=== PATIENT | male | born 1965 | race Caucasian/White ===

== ENCOUNTER 2022-08-24 20:43 | Emergency (ER) | payer BC, SELFPAY ==
--- NOTE | ~2022-08-24 | CT_ITS ---
EXAMINATION: CT abdomen pelvis w con DATE: 08/25/2022 00:32 INDICATION: Painless hematuria. TECHNIQUE: Computed tomography (CT) of the abdomen and pelvis was performed with 100 mL Omnipaque 350 intravenous contrast. Automated exposure control and iterative reconstruction technique were employe d. The dose-length product was 1273.53 mGy-cm. COMPARISON: None. FINDINGS: The visualized portions of the lung bases demonstrate mild atelectasis. No pleural effusion . The heart size is normal. No pericardial effusion. There is a small sliding hiatal hernia. The live r, gallbladder, spleen, pancreas, and adrenal glands are normal. There is cortical thinning of the ki dneys. There are cysts in right kidney measuring up to 9 mm. There is a 2 mm stone in right kidney. T he prostate is mildly enlarged. There are bilateral inguinal hernias containing fat. Left common jerry c vein and left external iliac vein are small, likely chronic thrombosis. There are enlarged collater al veins in the anterior pelvis. There is an anastomosis in the sigmoid colon. There is diverticulosi s of the colon without evidence of diverticulitis. The appendix is not visualized. There are no dilat ed loops of bowel. There are umbilical and supraumbilical ventral hernias containing fat. There are b ridging endplate osteophytes at multiple levels in the spine, consistent with diffuse idiopathic skel etal hyperostosis (DISH). There is moderate lumbar spondylosis. IMPRESSION: 1. 2 mm nonobstructing right kidney stone. 2. Small sliding hiatal hernia. 3. Ventral hernias containing fat. Reviewed, dictated and finalized at location A. [employer]
[2022-08-24 20:50] VITALS: BP 157/92; PULSE 96; RESP 18; TEMP 36.6; O2SAT 100
[2022-08-24 22:07] LABS: Appearance Urine Clear (Clear); Bilirubin Urine Negative (Negative); Blood Urine 3+ (Negative); Color Urine Yellow (Yellow); Glucose Urine UA 3+ mg/dL (Negative); Ketones Urine Negative (Negative); Leukocyte Esterase Ur Negative LEU/UL (Negative); Nitrate Urine Negative (Negative); Protein Urine 2+ mg/dL (Negative); Specific Grav Ur 1.015 (1.001-1.035); Urobilinogen Urine 0.2 mg/dL (<2.0); pH Urine 5.5 (5.0-9.0)
[2022-08-24 22:12] LABS: Mucus Urine Rare /lpf; Squamous Epithelial Cell Urine Rare /hpf (Few); WBC Urine 0-3 /hpf
[2022-08-24 22:14] LABS: Add Urine Microscopic? YES
[2022-08-24 23:05] VITALS: BP 143/83; PULSE 80; TEMP 36.8; O2SAT 100
[2022-08-24] MEDS: SODIUM CHLORIDE 0.9% IV 1,000 ML 999 ML IV CONT (23:41)
[2022-08-24 23:56] LABS: Basophils Percent Auto 0.5 % (0.2-1.2); Eosinophils Percent Auto 0.7 % (0-4.4); Hematocrit 41.8 % (42.0-52.0); Hemoglobin 13.9 g/dL (14.0-18.0); Immature Granulocyte Absolute 0.03 K/mm3 (0.00-0.031); Immature Granulocyte Percent A 0.5 % (0-0.5); Lymphocytes Absolute Auto 1.24 K/mm3 (0.9-3.2); Lymphocytes Percent Auto 20.8 % (18.3-44.2); Mean Corpuscular HGB Conc 33.3 g/dl (32-36); Mean Corpuscular Hemoglobin 32.5 pg (26-34); Mean Corpuscular Volume 97.7 fl (80-100); Mean Platelet Volume 10.6 fl (7.4-10.4); Monocytes Absolute Auto 0.5 K/mm3 (0.1-0.6); Monocytes Percent Auto 8.2 % (2.6-8.5); Neutrophils Absolute Auto 4.1 K/mm3 (1.3-6.7); Neutrophils Percent Auto 69.3 % (45.5-73.1); Platelet Count Result 157 k/mm3 (150-375); Red Blood Count 4.28 M/mm3 (4.6-6.20); Red Cell Distribution Width 13.7 % (11.5-14.5)
[2022-08-25 00:07] LABS: Alanine Aminotransferase 25 U/L (6-50); Albumin Level 3.7 g/dL (3.5-5.1); Alkaline Phosphatase 90 U/L (38-126); Anion Gap 5 mmol/L (8-16); Aspartate Amino Transferase 26 U/L (17-59); Bilirubin,Total 0.4 mg/dL (0.2-1.3); Blood Urea Nitrogen 12 mg/dL (9-20); Calcium 8.4 mg/dL (8.4-10.2); Carbon Dioxide 27 mmol/L (22-30); Chloride 103 mmol/L (98-107); Estimated CRCL calculation 65 ml/min; Estimated Glomerular Filt Rate 57; Glucose 248 mg/dL (65-110); Potassium 3.8 mmol/L (3.4-5.0); Sodium 135 mmol/L (137-145)
--- NOTE | 2022-08-25 00:19 | ED.MALEGU ---
HPI - Male Genitourinary General Chief complaint: Urogenital-Male Stated complaint: peeing blood Time Seen by Provider: 08/24/22 23:23 History of Present Illness HPI Narrative: 57-year-old male presents to the emergency room for evaluation of painless hematuria since yesterday. Patient denies history of cancer. Does endorse significant tobacco use. Patient denies any abdominal pain, flank pain or back pain. Denies nausea vomiting or diarrhea. Denies fevers. Denies unexplained weight loss. Denies any testicular pain. Related Data Home Medications Medication Instructions Recorded Confirmed atorvastatin 40 mg tablet mg 08/24/22 hydrochlorothiazide 25 mg tablet mg 08/24/22 losartan 100 mg tablet mg 08/24/22 metformin 500 mg tablet mg 08/24/22 Allergies Allergy/AdvReac Type Severity Reaction Status Date / Time No Known Allergies Allergy Verified 08/24/22 23:41 Review of Systems Review of Systems: CONSTITUTIONAL: Denies fever, chills, or sweats. EYES: Denies visual changes, redness, or discharge. ENT: Denies rhinorrhea, congestion, sore throat, or otalgia. CARDIOVASCULAR: Denies chest pain, palpitations, or edema. RESPIRATORY: Denies cough or dyspnea. GASTROINTESTINAL: Denies abdominal pain, nausea, vomiting, or diarrhea. GENITOURINARY: Denies dysuria or hematuria. SKIN: Denies rash or itching. MUSCULOSKELETAL: Denies back pain, joint pain, or myalgia. NEUROLOGIC: Denies headache, numbness, dizziness, or weakness. PSYCHIATRIC: Denies anxiety or depression. Exam Narrative: GENERAL: Well-appearing, well-nourished, no physical limitations, and in no acute distress. HEAD: Normocephalic, atraumatic. EYES: Conjunctivae normal, PERRLA and EOMI. CHEST: Clear to auscultation. No respiratory distress. No wheezes rales or rhonchi. N HEART: Regular rate and rhythm. No murmur heard. Normal peripheral pulses. ABDOMEN: Soft, nontender, nondistended, normal active bowel sounds. BACK: No CVA tenderness EXTREMITIES: Normal range of motion. No edema. No clubbing or cyanosis SKIN: Warm, dry, no rash. No noted wounds NEURO: No focal deficits. Alert and oriented x3. MAEW. CN's II-XI intact bilaterally, normal gait PSYCH: Cooperative. Normal mood and affect. Course Vital Signs Vital signs: Vital Signs Temperature 36.6 C 08/24/22 20:50 Pulse Rate 96 08/24/22 20:50 Respiratory Rate 18 08/24/22 20:50 Blood Pressure 157/92 H 08/24/22 20:50 Pulse Oximetry 100 08/24/22 20:50 Oxygen Delivery Room Air 08/24/22 20:50 Temperature 36.8 C 08/24/22 23:05 Pulse Rate 80 08/24/22 23:05 Respiratory Rate 18 08/24/22 20:50 Blood Pressure 143/83 H 08/24/22 23:05 Pulse Oximetry 100 08/24/22 23:05 Oxygen Delivery Room Air 08/24/22 20:50 MDM - Male Genitourinary MDM Narrative Medical decision making narrative: 57-year-old male presented to the emergency room complaints of hematuria. CT scan showed no evidence of mass or enlarged prostate. Lab work was unremarkable. No subsequent interview with the patient, he stated that he yanked on his penis aggressively on accident yesterday prior to voiding. Believes that this may have been the cause of the hematuria. We will have patient follow-up with urology next week. Lab Data 08/24/22 23:41 08/24/22 23:41 Labs: Lab Results 08/24/22 08/24/22 08/24/22 Range/Units 21:59 23:41 23:41 WBC 6.0 (4.5-10.0) K/mm3 RBC 4.28 L (4.6-6.20) M/mm3 Hgb 13.9 L (14.0-18.0) g/dL Hct 41.8 L (42.0-52.0) % MCV 97.7 (80-100) fl MCH 32.5 (26-34) pg MCHC 33.3 (32-36) g/dl RDW 13.7 (11.5-14.5) % Plt Count 157 (150-375) k/mm3 MPV 10.6 H (7.4-10.4) fl Immature Gran % (Auto) 0.5 (0-0.5) % Neut % (Auto) 69.3 (45.5-73.1) % Lymph % (Auto) 20.8 (18.3-44.2) % Richardson % (Auto) 8.2 (2.6-8.5) % Eos % (Auto) 0.7 (0-4.4) % Baso % (Auto) 0.5 (0.2-1.2) % Lymph # (Auto) 1.24
[2022-08-25 01:53] VITALS: BP 166/88; PULSE 79; RESP 17; TEMP 36.6; O2SAT 100
== END 2022-08-25 01:56 | disposition home or self-care (01) ==
PROVIDERS: Emergency Medicine; Emergency Provider Nurse Practitioner Family
DX: R31.9 Hematuria, unspecified (principal)
CPT/HCPCS: 36415; 74177; 80053; 81001; 85025; 96360; 99284; J7030; Q9967